=== PATIENT | male | born 1960 | race Caucasian/White ===

== ENCOUNTER → 2018-02-27 | Outpatient (CLI) | payer BC ==
--- NOTE | 2018-02-28 09:30 | PCVCIMAG ---
APPROVED REPORT Study performed: 02/27/2018 15:27:33 Exam: Stress Echocardiogram Indication: Hyperlipidemia, CAD Patient Location: Echo lab Stress Nurse: Kat Lyon RN Room #: 2 Status: routine Ht: 5 ft 9 in HR: 53 bpm BP: 110/68 mmHg Rhythm: Sinus Bradycardia Medical History Medical History: CAD non obstructive,dyslipidemia Cardiac Risk Factors: Hyperlipidemia Pretest Chest Pain Characteristics: No chest pain Exercise History: Physically active Procedure The patient underwent an Exercise Stress Test using the Ihsan Protocol. Blood pressure, heart rate, and EKG were monitored. An Echocardiogram was performed by energy and conservation technician in four stages in quad fashion. At peak stress, four selected images were obtained and placed side by side with resting images for comparison. Stress Test Details Stress Test: Exercise stress testing was performed using a Ihsan protocol. HR Resting HR: 53 bpmMax Heart Rate (APMHR): 162 bpm Max HR Achieved: 169 bpmTarget HR (85% APMHR): 137 bpm % of APMHR: 104 Recovery HR: 90 bpm HR response to stress: Normal HR response to stress BP Resting BP: 110/68 mmHg Max BP: 152/70 mmHg Recovery BP: 138/64 mmHg BP response to stress: Normal blood pressure response to stress. ECG Resting ECG: Sinus Bradycardia Stress ECG: Sinus Rhythm ST Change: Downsloping ST depression Maximum ST Deviation: -2.9 mm Recovery ECG: Sinus Rhythm Recovery ST Change: Horizontal ST depression Recovery ST Deviation: -1.65 mm Recovery Arrhythmia: none Clinical Reason for Termination: Maximal effort Stress Symptoms: none Exercise duration: 12 min 13 sec Highest Stage Achieved: Stage 5: 5.0 mph at 18% grade. Exercise capacity: 14.1 METs Overall Exercise Capacity for Age: Good Scale: Active Angina Score: None No complications. Stress ECG Conclusion The patient exercised according to the IHSAN protocol for 12:13 mins; achieving a work level of 14.1 METS. The resting heart rate of 53 bpm mason to a maximum heart rate of 169 bpm. This value represent 104% of the maximal, age-predicted heart rate. The resting blood pressure of 110/68 mmHg, mason to a maximum blood pressure of 152/70 mmHg. The exercise test was stopped due to fatigue. 1. Subjectively negative for ischemia 2. Echocardiographically abnormal with ST segment depression suggestive of ischemia Rothman Treadmill Score is 26.5 which is Low risk. Pre-Stress Echo The resting Echocardiogram showed normal left ventricular contractility with an estimated Ejection Fraction of about 55-60%. Normal wall motion in all segments on baseline images. Post-Stress Echo The stress Echocardiogram showed abnormal left ventricular contractility with an estimated Ejection Fraction of about 65-70%. Distal anterior wall,apex and distal inferior lopez are hypokinetic. Conclusion Clinical Response: Non-ischemic Exercise Capacity: Superior Stress ECG Response: Ischemic Stress Echo Images: Ischemic Positive stress echo 1. Appeared abnormal stress echo with development of a hinge point in hypo-kinesis of the distal septal apical wall. <Conclusion> Positive stress echo 1. Appeared abnormal stress echo with development of a hinge point in hypo-kinesis of the distal septal apical wall.
== END | disposition home or self-care (01) ==
LOC: PCVCIMAG 15:33
PROVIDERS: ATTEND Internal Medicine
DX: I25.10 Atherosclerotic heart disease of native coronary artery without angina pectoris (principal); R00.1 Bradycardia, unspecified; R93.1 Abnormal findings on diagnostic imaging of heart and coronary circulation; E78.5 Hyperlipidemia, unspecified
CPT/HCPCS: 93325; 93351